=== PATIENT | male | born 1965 | race Caucasian/White ===

== ENCOUNTER → 2024-04-30 15:13 | Outpatient (CLI) | payer OTHER, SELFPAY ==
--- NOTE | 2024-04-30 | DI.US.S_ITS ---
PROCEDURE: US PERIPH VENOUS LOW EXTREM LT INDICATIONS: pain in left calf, history of clots TECHNIQUE: Real-time imaging, as well as color and pulse Doppler interrogation, were performed of the lower extremity deep veins from the inguinal ligament to the popliteal fossa, with documentation of the visualized calf veins. COMPARISON: None. FINDINGS: The common femoral, femoral, popliteal, and the visualized calf veins are normally compressible, and free of intraluminal thrombus. Color and pulse Doppler demonstrate normal phasic intraluminal flow. There is normal augmentation response to distal compression maneuver. Additional, dedicated ultrasound scanning is performed at the area of lateral calf injury. No focal ultrasound abnormalities are seen within this region. IMPRESSION: No findings of lower extremity deep venous thrombosis. Dictated by: Enmanuel Dailey M.D. on 04/30/2024 at 15:52 Approved by: Enmanuel Dailey M.D. on 04/30/2024 at 15:53
== END ==
DX: M79.662 Pain in left lower leg (principal)
CPT/HCPCS: 93971